=== PATIENT | male | born 1995 | race Caucasian/White ===

== ENCOUNTER 2017-12-20 09:05 | Emergency (ER) | payer BC ==
[~2017-12-20] VITALS: Ht 182.9 cm; Wt 99.8 kg
[~2017-12-20 09:05] MED LIST: ACHD5005 PO; AMOX500C2 PO
[2017-12-20] MEDS ORDERED: ONDANSETRON 4 MG/2 ML (SDV) Z0FRAN ONE (09:18)
[2017-12-20] MEDS ORDERED: KETOROLAC 30 MG/ML VIAL ONE (09:18)
[2017-12-20 09:25] LABS: BASOPHILS % (AUTO) 1 % (0-10); EOSINOPHILS # (AUTO) 0.2 10^3/uL (0.0-0.3); EOSINOPHILS % (AUTO) 2 % (0-10); HEMATOCRIT 44 % (40-54); LYMPHOCYTES # (AUTO) 2.8 X 10^3 (1.0-4.0); LYMPHOCYTES % (AUTO) 35 % (12-44); MEAN CORPUSCULAR HEMOGLOBIN 29 PG (25-34); MEAN CORPUSCULAR HGB CONC 36 G/DL (32-36); MEAN CORPUSCULAR VOLUME 81 FL (80-99); MEAN PLATELET VOLUME 10.5 FL (7.4-10.4); MONOCYTES # (AUTO) 0.9 X 10^3 (0.0-1.0); MONOCYTES % (AUTO) 11 % (0-12); NEUTROPHILS # (AUTO) 4.1 X 10^3 (1.8-7.8); NEUTROPHILS % (AUTO) 51 % (42-75); PLATELET COUNT 224 10^3/uL (130-400); RED BLOOD COUNT 5.48 10^6/uL (4.35-5.85); RED CELL DISTRIBUTION WIDTH 12.9 % (10.0-14.5)
[2017-12-20] MEDS ORDERED: ONDANSETRON 4 MG/2 ML (SDV) Z0FRAN IVP ONE (09:30)
[2017-12-20] MEDS ORDERED: KETOROLAC 30 MG/ML VIAL IVP ONE (09:30)
[2017-12-20 09:42] LABS: ALANINE AMINOTRANSFERASE 15 U/L (0-55); ALBUMIN 4.4 GM/DL (3.2-4.5); ALKALINE PHOSPHATASE 50 U/L (40-136); BILIRUBIN,TOTAL 0.5 MG/DL (0.1-1.0); BUN/CREATININE RATIO 13; CALCIUM 9.3 MG/DL (8.5-10.1); CARBON DIOXIDE 24 MMOL/L (21-32); CHLORIDE 104 MMOL/L (98-107); CREATININE SERUM 1.14 MG/DL (0.60-1.30); GFR ESTIMATED > 60; GLUCOSE 131 MG/DL (70-105); POTASSIUM 3.4 MMOL/L (3.6-5.0); SODIUM 139 MMOL/L (135-145); TOTAL PROTEIN 7.6 GM/DL (6.4-8.2)
--- NOTE | 2017-12-20 09:46 | ED General ---
General Chief Complaint: Back Problems Stated Complaint: POSS KID STONE//PAIN//NV/V/BLOOD IN URINE Source of Information: Patient Exam Limitations: No Limitations History of Present Illness Date Seen by Provider: Dec 20, 2017 Time Seen by Provider: 09:41 Initial Comments The patient is a 24-year-old white male. He reports that at about 0800 he awakened and was prepared to start his day however he began to note left flank pain which radiated anteriorly and downward across the abdomen. He believed that he saw red coloration in his urine. He has a previous history of kidney stones and was seen here for that. Timing/Duration: 1-3 Hours Severity: Moderate Allergies and Home Medications Allergies Coded Allergies: No Known Drug Allergies (Unverified , 10/11/15) Home Medications Amoxicillin 500 Mg Capsule, 1,000 MG PO BID, #40 Prescribed by: CHRISS GONZALEZ on 10/11/15 0304 Hydrocodone Bit/Acetaminophen 1 Each Tablet, 1-2 EACH PO Q4H PRN for PAIN, #14 Prescribed by: KENNY ALBA on 12/23/15 0517 Constitutional: see HPI EENTM: no symptoms reported Respiratory: no symptoms reported Cardiovascular: no symptoms reported Gastrointestinal: no symptoms reported Genitourinary: no symptoms reported Musculoskeletal: no symptoms reported Skin: no symptoms reported Psychiatric/Neurological: No Symptoms Reported Hematologic/Lymphatic: No Symptoms Reported Past Zibnywj-Ecgdqy-Lwmhip Hx Patient Social History Recent Foreign Travel: No Contact w/Someone Who Travel: No Seasonal Allergies Seasonal Allergies: No Surgeries Surgeries: Appendectomy Neurological Neurological Disorders: Meningitis Blood Transfusions Adverse Reaction to a Blood Tr: No Family Medical History Significant Family History: No Pertinent Family Hx Physical Exam Vital Signs Vital Signs - First Documented 12/20/17 09:10 Temp 97.0 Pulse 91 Resp 18 B/P (MAP) 141/88 (105) Pulse Ox 99 Capillary Refill : General Appearance: Mild Distress Eyes: Bilateral Eye Normal Inspection HEENT: Normal ENT Inspection Neck: Normal Inspection Respiratory: Chest Non Tender, Lungs Clear, Normal Breath Sounds, No Accessory Muscle Use, No Respiratory Distress Cardiovascular: Regular Rate, Rhythm, No Edema, No Gallop, No JVD, No Murmur, Normal Peripheral Pulses Back: CVA Tenderness (L) Progress/Results/Core Measures Suspected Sepsis SIRS Temperature: Pulse: Respiratory Rate: Laboratory Tests 12/20/17 09:15: White Blood Count 8.0 Blood Pressure / Mean: Laboratory Tests 12/20/17 09:15: Creatinine 1.14, Platelet Count 224, Total Bilirubin 0.5 Results/Orders Lab Results Laboratory Tests Test 12/20/17 09:15 Range/Units White Blood Count 8.0 4.3-11.0 10^3/uL Red Blood Count 5.48 4.35-5.85 10^6/uL Hemoglobin 16.0 13.3-17.7 G/DL Hematocrit 44 40-54 % Mean Corpuscular Volume 81 80-99 FL Mean Corpuscular Hemoglobin 29 25-34 PG Mean Corpuscular Hemoglobin Concent 36 32-36 G/DL Red Cell Distribution Width 12.9 10.0-14.5 % Platelet Count 224 130-400 10^3/uL Mean Platelet Volume 10.5 H 7.4-10.4 FL Neutrophils (%) (Auto) 51 42-75 % Lymphocytes (%) (Auto) 35 12-44 % Monocytes (%) (Auto) 11 0-12 % Eosinophils (%) (Auto) 2 0-10 % Basophils (%) (Auto) 1 0-10 % Neutrophils # (Auto) 4.1 1.8-7.8 X 10^3 Lymphocytes # (Auto) 2.8 1.0-4.0 X 10^3 Monocytes # (Auto) 0.9 0.0-1.0 X 10^3 Eosinophils # (Auto) 0.2 0.0-0.3 10^3/uL Basophils # (Auto) 0.0 0.0-0.1 10^3/uL Sodium Level 139 135-145 MMOL/L Potassium Level 3.4 L 3.6-5.0 MMOL/L Chloride Level 104 98-107 MMOL/L Carbon Dioxide Level 24 21-32 MMOL/L Anion Gap 11 5-14 MMOL/L Blood Urea Nitrogen 15 7-18 MG/DL Creatinine 1.14 0.60-1.30 MG/DL Estimat Glomerular Filtration Rate > 60 BUN/Creatinine Ratio 13 Glucose Level 131 H 70-105 MG/DL Calcium Level 9.3 8.5-10.1 MG/DL Total Bilirubin 0.5 0.1-1.0 MG/DL Aspartate Amino Transf (AST/SGOT) 17 5-34 U/L Alanine Aminotransferase (ALT/SGPT) 15 0-55 U/L Alkaline Phosphatase 50 40-136 U/L Total Protein 7.6 6.4-8.2 GM/DL Albumin 4.4 3.2-4.5 GM/DL My Orders Orders - CARMELLA SMILEY MD Cbc With Automated Diff (12/20/17 09:12) Comprehensive Metabolic Panel (12/20/17 09:12) Ua Culture If Indicated (12/20/17 09:12) Ketorolac Injection (Toradol Injection) (12/20/17 09:30) Ondansetron Injection (Zofran Injectio (12/20/17 09:30) Ondansetron Injection (Zofran Injectio (12/20/17 09:18) Ketorolac Injection (Toradol Injection) (12/20/17 09:18) Ct Abd/Pelvis Wo(Kidney Stone) (12/20/17 09:37) Medications Given in ED Current Medications Medications Dose Ordered Sig/Daxa Route Start Time Stop Time Status Last Admin Dose Admin Ketorolac Tromethamine 30 mg ONCE ONCE IVP 12/20/17 09:30 12/20/17 09:31 DC 12/20/17 09:22 30 MG Ondansetron HCl 8 mg ONCE ONCE IVP 12/20/17 09:30 12/20/17 09:31 DC 12/20/17 09:22 8 MG Vital Signs/I&O Vital Sign - Last 12Hours 12/20/17 09:10 Temp 97.0 Pulse 91 Resp 18 B/P (MAP) 141/88 (105) Pulse Ox 99 Capillary Refill : Departure Impression Impression: Primary Impression: left ureterolithiasis Disposition: 01 HOME, SELF-CARE Condition: Stable/Unchanged Departure-Patient Inst. Decision time for Depature: 10:37 Referrals: NO,LOCAL PHYSICIAN (PCP) Primary Care Physician Add. Discharge Instructions: All discharge instructions reviewed with patient and/or family. Voiced understanding. Strain all urine. Hydrocodone as needed for pain. Call Dr. Cook's office Saturday a.m., [phone] for appointment. Return to ER if pain uncontrollable Scripts Hydrocodone/Acetaminophen (Norris 7.5-325 Tablet) 1 Each Tablet 1 EACH PO 4 times a day, #10 TAB Prov: CARMELLA SMILEY MD 12/20/17 CARMELLA SMILEY MD Dec 20, 2017 09:46
--- NOTE | 2017-12-20 10:11 | Diagnostic Imaging Report ---
PROCEDURE: CT urinary tract, rule out kidney stone. TECHNIQUE: Multiple contiguous axial images were obtained through the abdomen and pelvis without the use of intravenous contrast. INDICATION: Left flank pain starting earlier in the day. History of stones. CORRELATION STUDY: 12/23/2015 FINDINGS: LOWER THORAX: Clear. LIVER: Unremarkable on unenhanced imaging. GALLBLADDER: Present and unremarkable. No bile duct dilatation. SPLEEN: Unremarkable. PANCREAS: Unremarkable. ADRENAL GLANDS: Unremarkable. KIDNEYS: There are punctate nonobstructing bilateral renal stones. Largest stone inferior pole left kidney measures 4 mm. A 4 mm stone located in the distal left ureter is present resulting in very slight dilatation of the left ureter. No overt hydronephrosis. Stone located approximately 15 mm proximal to the UVJ. ABDOMINAL AORTA: Unremarkable, nonaneurysmal. GASTROINTESTINAL TRACT: No obstruction or formation. Prior appendectomy changes noted. The transverse colon is somewhat thickwalled diffusely likely owing to relatively collapsed state. There are rather prominent in number mesenteric lymph nodes including central retroperitoneal lymph nodes. No pathologically enlarged lymphadenopathy. No abdominal ascites or free air. URINARY BLADDER: Relatively decompressed. REPRODUCTIVE: Prostate gland and seminal vesicles appear unremarkable. OSSEOUS STRUCTURES: Mild leftward curvature of the lumbar spine. IMPRESSION: 1. A 4 mm stone distal left ureter resulting in very slight dilatation of the left ureter. Additional bilateral renal stones are present. Dictated by: Dictated on workstation # [id number]
[2017-12-20] MEDS ORDERED: HYDR-756 PO (10:39)
[2017-12-20 10:45] VITALS: BP 141/88
== END 2017-12-20 10:45 | disposition home or self-care (01) ==
LOC: EDUNIT# 09:05 → ER 09:08
DX: N20.1 Calculus of ureter (principal); Z86.61 Personal history of infections of the central nervous system; Z90.49 Acquired absence of other specified parts of digestive tract; Z87.442 Personal history of urinary calculi
CPT/HCPCS: 36415; 74176; 80053; 85025

== ENCOUNTER 2017-12-21 23:29 | Emergency (ER) | payer BC ==
[~2017-12-21 23:29] MED LIST changes: +HYDR-756 PO
--- OUTSIDE RECORDS SUMMARY | 2017-12-21 23:37 | XMS REPORT | Continuity of Care Document ---
Author Author [facility] Organization [facility] Address Unknown Phone Unavailable Allergies Active Description Code Type Severity Reaction Onset Reported/Identified Relationship to Patient Clinical Status Yes No Known Drug Allergies [id number] Drug Allergy Unknown N/A 10/11/2015 Medications There is no data. Problems Date Dx Coded Attending Type Code Diagnosis Diagnosed By 10/11/2015 DIMA CARLSON, CHRISS Ellsworth Ot J02.0 10/11/2015 DIMA CARLSON, CHRISS Ellsworth Ot R50.9 10/11/2015 DIMA CARLSON, CHRISS Ellsworth Ot R51 12/23/2015 ANJALI CARLSON, KENNY Mcfarlane Ot N13.2 Procedures There is no data. Results There is no data. Encounters ACCT No. Visit Date/Time Discharge Status Pt. Type Provider Facility Loc./Unit Complaint [id number] 12/23/2015 03:45:00 12/23/2015 05:35:00 DIS Emergency KENNY ALBA MD [facility] ER [id number] 10/11/2015 02:12:00 10/11/2015 03:26:00 DIS Emergency CHRISS CH MD [facility]
== END 2017-12-22 00:36 | disposition left against medical advice (07) ==
LOC: EDUNIT# 23:29 → ER 23:30
DX: R10.30 Lower abdominal pain, unspecified (principal)